=== PATIENT | male | born 1980 | race Caucasian/White ===

== ENCOUNTER 2019-01-06 15:00 | Emergency (ER) | payer OTHER ==
[~2019-01-06] VITALS: Ht 170.2 cm; Wt 68.0 kg
[~2019-01-06 15:00] MED LIST: IBUP-974 PO
[2019-01-06 15:29] VITALS: BP 113/72
--- NOTE | 2019-01-06 15:34 | NUR ---
PT TRIAGED VSS, SENT TO LOBBY AT THIS TIME.
--- NOTE | 2019-01-06 16:08 | NUR ---
PT TO ER BED 6
--- NOTE | 2019-01-06 16:26 | NUR ---
PATIENT PRESENTS TO ED WITH THE CHIEF C/O RUQ PAIN. PT STATES HE WAS HAVING PAIN SINCE A MONTH BUT GETTING WORSE PAST 2 DAYS. DENIES N/V/D. HAD NORMAL BM THIS MORNING. ABDOMEN SOFT ROUND AND NON-TENDER. ACTIVE BOWEL SOUND.DENIES ANY BURNING URINATION OR BACK PAIN AT THIS TIME. SKIN IS PINK/WARM/DRY; AAOX4 WITH EVEN AND STEADY GAIT. PT DENIES ANY FEVER, CP, OR COUGH AT THIS TIME. HAS SOB. PLACED ON BEDSIDE MONITOR. 97% IN ROOM AIR. PATIENT STATES PAIN OF 6/10 AT THIS TIME; VSS; PATIENT POSITIONED FOR COMFORT; HOB ELEVATED; BEDRAILS UP X2; BED DOWN. ER MD MADE AWARE OF PT STATUS.
--- NOTE | 2019-01-06 16:34 | NUR ---
SEEN BY DR. SIMENTAL.
[2019-01-06 17:05] LABS: BASOPHILS % (AUTO) 0.2 % (0.0-2.0); EOSINOPHILS # (AUTO) 0.1 K/uL (0-0.4); EOSINOPHILS % (AUTO) 2.1 % (0.0-4.0); HEMOGLOBIN 14.3 g/dL (12.0-18.0); LYMPHOCYTES # (AUTO) 1.6 K/uL (2.0-11.5); LYMPHOCYTES % (AUTO) 26.5 % (20.5-51.1); MEAN CORPUSCULAR HEMOGLOBIN 30 pg (27-31); MEAN CORPUSCULAR HGB CONC 33 g/dL (33-37); MEAN CORPUSCULAR VOLUME 88.8 fL (80-94); MONOCYTES # (AUTO) 0.4 K/uL (0.8-1.0); MONOCYTES % (AUTO) 7.1 % (1.7-9.3); NEUTROPHILS # (AUTO) 3.8 K/uL (1.8-7.7); NEUTROPHILS % (AUTO) 64.1 % (42.2-75.2); PLATELET COUNT (AUTO) 334 K/uL (140-450); RED BLOOD CELL COUNT(AUTO) 4.84 MIL/uL (4.20-6.10); RED CELL DISTRIBUTION WIDTH 12.9 % (11.6-13.7)
[2019-01-06 17:06] LABS: APPEARANCE,URINE CLEAR (CLEAR); BILIRUBIN,URINE NEGATIVE (NEGATIVE); BLOOD, URINE NEGATIVE (NEGATIVE); COLOR,URINE YELLOW (YELLOW); LEUKOCYTE ESTERASE ,URINE NEGATIVE (NEGATIVE); NITRITE, URINE NEGATIVE (NEGATIVE); UGLUCOSE NEGATIVE (NEGATIVE)
[2019-01-06 17:19] LABS: ANION GAP 8.7 (8-16); CARBON DIOXIDE 31.7 mmol/L (21-32); CREATININE 1.1 mg/dL (0.7-1.3); POTASSIUM 4.4 mmol/L (3.5-5.1)
[2019-01-06 17:25] LABS: TOTAL BILIRUBIN 0.5 mg/dL (0.0-1.0)
--- NOTE | 2019-01-06 18:10 | NUR ---
PT BEING RE-EVALUATED BY DR. SIMENTAL AT THIS TIME.
[2019-01-06 18:26] VITALS: BP 113/74
== END 2019-01-06 18:26 | disposition home or self-care (01) ==
LOC: MED 15:00
DX: R10.9 Unspecified abdominal pain (principal); J45.909 Unspecified asthma, uncomplicated; Z79.1 Long term (current) use of non-steroidal anti-inflammatories (NSAID)
CPT/HCPCS: 36415; 71045; 76705; 80053; 81003; 83690; 85025; 99284; Q0092